=== PATIENT | male | born 1955 | race Two or more races ===

== ENCOUNTER 2017-03-30 07:09 | Inpatient (IN) | payer MEDICAID ==
[~2017-03-30 07:09] MED LIST: ABILIFY10 M1 PO; GLUCOPHAGE1000 M1 PO; HYDROXYZINE HCL25 M1 PO; LEVEMIR FL100 UNIT/2 SC; LISINOPRIL-HCT1 EAC2 PO; MELATIN3 MG PO; REMERON15 M1 PO; TRAZODONE HCL50 M1 PO; ULTRAM50 M1 PO
[2017-03-31 05:09] LABS: HCT-HEMATOCRIT 40.3 % (36.0-53.5); HGB-HEMOGLOBIN 13.9 gm/dl (13.5-17.0); IMMATURE GRANULOCYTES ABSOLUTE 0.08 tho/cmm (0-0.03); IMMATURE GRANULOCYTES PERCENT 0.4 % (0-0.3); LYMPH ABSOLUTE COUNT 1.5 tho/cmm (0.8-4.5); MCH (MEAN CORPUSCULAR HGB) 30.8 pg (28.0-32.0); MCHC MEAN CORPUSCULAR HGB CONC 34.5 % (32.0-36.0); MCV (MEAN CELL VOLUME) 89.4 fl (82.0-96.0); MEAN PLATELET VOLUME 10.8 cmc (9.4-12.4); MONO % 4.8 % (0-12); NEUTROPHIL ABSOLUTE COUNT 18.9 tho/cmm (1.6-8.0); NEUTROPHIL-AUTOMATED 18.9 tho/cmm (1.6-8.0); NEUTROPHILS % 87.8 % (40-80); PLATELET COUNT 218 tho/cmm (150-450); RED BLOOD COUNT 4.51 mil/cmm (4.40-5.70); RED CELL DISTRIBUTION WIDTH 12.5 % (12.4-16.4); WHITE BLOOD COUNT 21.5 tho/cmm (4.0-10.0)
[2017-04-02] MEDS ORDERED: MOBIC7.5 M2 PO (09:41)
[2017-04-02] MEDS ORDERED: ASPIRIN325 M3 PO (09:41)
[2017-04-02] MEDS ORDERED: TYLENOL325 M2 PO (09:43)
== END 2017-04-02 13:25 | disposition home health service (06) | DRG 470 ==
LOC: SHSC 07:09 → ORE 11:12 → PACU 13:36 → 5EA 14:30
PROVIDERS: ADMIT Orthopaedic Surgery
PROC: 0SRD0J9 Replacement of Left Knee Joint with Synthetic Substitute, Cemented, Open Approach (ICD-10-PCS; principal; 2017-03-30)
DX: M17.12 Unilateral primary osteoarthritis, left knee (principal); I10 Essential (primary) hypertension; M24.562 Contracture, left knee; E11.9 Type 2 diabetes mellitus without complications; Z72.0 Tobacco use; Z79.4 Long term (current) use of insulin
CPT/HCPCS: C1713; C1776; G0009; J0171; J0690; J1815; J1885; J2270; J2795